=== PATIENT | male | born 1985 | race Caucasian/White ===

== ENCOUNTER 2022-08-17 11:49 | Emergency (ER) | payer OTHER, MEDICAID, SELFPAY ==
[2022-08-17 11:59] VITALS: BP 126/81; PULSE 62; RESP 15; TEMP 36.7; O2SAT 98; BMI 22.7
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
--- NOTE | 2022-08-17 12:09 | DI.RAD.S_ITS ---
PROCEDURE: XR SHOULDER RT MIN 2V INDICATIONS: shoulder injury one month ago TECHNIQUE: 3 views of the shoulder were acquired. COMPARISON: None. FINDINGS: Bones: No fractures. On the transscapular view, there is mild posterior subluxation of the humeral head. No suspicious bony lesions. Visualized ribs appear intact. Soft tissues: No suspicious soft tissue calcifications. IMPRESSION: 1. Mild posterior subluxation of the humeral head on the transscapular view. This finding could be secondary to rotation. If there is high clinical suspicion for posterior shoulder dislocation, a transaxillary view or repeat transscapular can be obtain. 2. Otherwise no acute osseous abnormalities. Dictated by: Ilir Carey M.D. on 08/17/2022 at 12:39 Approved by: Ilir Carey M.D. on 08/17/2022 at 12:43
== END 2022-08-17 13:59 | disposition home or self-care (01) ==
PROVIDERS: Emergency Provider Emergency Medicine
DX: S43.004A Unspecified dislocation of right shoulder joint, initial encounter (principal); Y93.55 Activity, bike riding
CPT/HCPCS: 73030; 99283